=== PATIENT | female | born 1985 | race Caucasian/White ===

== ENCOUNTER 2016-06-16 23:16 | Emergency (ER) | payer OTHER ==
[2016-06-16] MEDS ORDERED: DOXYcycline CAP(*) 100 MG PO ONE (23:58)
--- NOTE | 2016-06-17 00:06 | ED ---
Laceration/Wound HPI - HPI Summary HPI Summary: The patient is a 30 year old female presenting to the ED with complaint of right hand laceration after bit by dog. Indicates her dog got ahold of peanut butter crackers in mouth. When she attempted to pull the package out of mouth, her dog bit her. Admits to laceration between 1st/2nd digit and numbness in right thumb. Able to control bleeding with pressure dressing. Reports her dog is vaccinated up to date. Vet Dr. Rachele Jason. History of anxiety, ADD. No significant FH. SH: Denies smoking or alcohol use. - History of Current Complaint Stated Complaint: DOG BITE RIGHT HAND Time Seen by Provider: 06/16/16 23:30 Pain Intensity: 3 PMH/Surg Hx/FS Hx/Imm Hx Infectious Disease History: Yes Infectious Disease History: Denies: Traveled Outside the [place] in Last 30 Days Review of Systems Musculoskeletal: Negative Positive: Other - laceration Positive: Paresthesia All Other Systems Reviewed And Are Negative: Yes Physical Exam Triage Information Reviewed: Yes Vital Signs On Initial Exam: Initial Vitals Temp Pulse Resp BP Pulse Ox 98.4 F 102 18 137/94 99 06/16/16 23:36 06/16/16 23:36 06/16/16 23:36 06/16/16 23:36 06/16/16 23:36 Vital Signs Reviewed: Yes Appearance: Positive: Well-Appearing, No Pain Distress, Well-Nourished Skin: Positive: Warm, Skin Color Reflects Adequate Perfusion, Dry, Other - 5 cm V-shaped laceration with flap intact extending to subcutaneous tissue without foreign body or visible tendon laceration; no active hemorrhage Head/Face: Positive: Normal Head/Face Inspection Eyes: Positive: Normal - Anicteric ENT: Positive: Hearing grossly normal Neck: Positive: Supple Respiratory/Lung Sounds: Positive: Other - Normal respirations Cardiovascular: Positive: RRR - radial pulse 2+ Musculoskeletal: Positive: Strength/ROM Intact - normal flexion/extension of right thumb and 2nd digit; normal flexion/extension/inversion/eversion of right wrist.. Negative: Limited @, Interruption @ Neurological: Positive: Normal, Speech Normal, Other - dulled sensation to right thumb; remaining sensation intact Psychiatric: Positive: Normal AVPU Assessment: Alert Procedures - Laceration/Wound Repair 1 Location: upper extremity - right volar hand between 1-2 digit Description: Irregular - V-shaped with flap Anesthesia: Local, 1.0%, Lido Length, Depth and Shape: 5cm Betadine Prep?: Yes Irrigated w/ Saline (ccs): 100 Laceration/Wound Explored: clean, no foreign body removed Closure: Multilayer - loosely approximated Suture Type: Nylon - 4-0 #8 interrupted sutures, Chromic - 4-0 #2 interrupted sutures Number of Sutures: 10 Layer Closure?: Yes Sterile Dressing Applied?: Yes Diagnostics - Vital Signs Vital Signs Temp Pulse Resp BP Pulse Ox 06/16/16 23:36 98.4 F 102 18 137/94 99 - Laboratory Lab Statement: Any lab studies that have been ordered have been reviewed, and results considered in the medical decision making process. Laceration Repair Course/Dx - Course Assessment/Plan: Impression of right hand laceration due to dog bite. Tetanus uptodate 3 years ago. Repaired loosely with sutures. Educated on wound care. Prophylactic Doxycycline. Advised follow-up in 7 days for removal. - Clinical Impression Provider Diagnoses: Dog bite, Laceration of hand Discharge - Discharge Plan Condition: Stable Disposition: HOME Prescriptions: DOXYcycline CAP(*) [DOXYcycline 100MG CAP(*)] 100 mg PO BID #10 cap Patient Education Materials: Animal Bite (ED), Laceration (ED) Referrals: Martinez SEYMOUR,Wm Haywood [Primary Care Provider] -
[2016-06-17 02:22] VITALS: BP 126/80
== END 2016-06-17 01:35 | disposition home or self-care (01) ==
LOC: ED 23:16
DX: S61.411A Laceration without foreign body of right hand, initial encounter (principal); W54.0XXA Bitten by dog, initial encounter; Y93.9 Activity, unspecified; Y92.9 Unspecified place or not applicable; Y99.9 Unspecified external cause status
CPT/HCPCS: 12002; 99282; A9270-GY